=== PATIENT | female | born 2000 | race Hispanic/Latino ===

== ENCOUNTER 2024-12-14 14:42 | Outpatient (CLI) | payer OTHER | END 2024-12-14 14:43 | disposition home or self-care (01) | LOC: ULT 14:42 | PROVIDERS: ATTEND Family Medicine | DX: Z34.82 Encounter for supervision of other normal pregnancy, second trimester (principal); Z3A.20 20 weeks gestation of pregnancy | CPT/HCPCS: 76805 ==